=== PATIENT | male | born 1985 | race African-American/Black ===

== ENCOUNTER 2016-11-23 10:16 | Inpatient (IN) | payer SELFPAY ==
[~2016-11-23] VITALS: Ht 188 cm; Wt 82.3 kg
[~2016-11-23 10:16] MED LIST: LISI-334 PO
--- NOTE | 2016-11-23 11:41 | EKG ---
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
--- NOTE | 2016-11-23 11:46 | RAD ---
Portable chest, 11/23/2016: History: Chest pain Comparison is made to a study from 12/18/2015. The heart size is normal. The lungs are clear. There is no evidence of pleural fluid. IMPRESSION: No acute cardiopulmonary abnormality is detected.
[2016-11-23 11:51] LABS: BASO % 0 % (0-3); EOS % 1 % (0-3); HEMATOCRIT 46.8 % (39.0-53.0); HEMOGLOBIN 15.4 g/dL (13.0-17.5); LYMPH # 2.7 x10^3/uL (1.0-4.8); LYMPH % 26 % (24-48); MEAN CORPUSCULAR HEMOGLOBIN 27 pg (25-35); MEAN CORPUSCULAR HGB CONC 33 g/dL (31-37); MEAN CORPUSCULAR VOLUME 83 fL (79-100); MONO % 6 % (0-9); NEUT % 67 % (31-73); PLATELET COUNT 228 x10^3/uL (140-400); RED BLOOD COUNT 5.62 x10^6/uL (4.30-5.70); WHITE BLOOD COUNT 10.5 x10^3/uL (4.0-11.0)
[2016-11-23 11:56] LABS: ALBUMIN 4.3 g/dL (3.4-5.0); ALBUMIN/GLOBULIN RATIO 1.1 (1.0-1.7); CALCIUM 8.7 mg/dL (8.5-10.1); CREATININE 1.3 mg/dL (0.7-1.3); POTASSIUM 3.5 mmol/L (3.5-5.1); TOTAL BILIRUBIN 0.5 mg/dL (0.2-1.0); TOTAL PROTEIN 8.3 g/dL (6.4-8.2)
[2016-11-23 12:05] LABS: CKMB MASS 6.7 ng/mL (0.0-3.6)
[2016-11-23] MEDS ORDERED: IV NORMAL SALINE 1000ML BAG 1,000 ML IV ONE (12:30)
[2016-11-23 12:46] LABS: BILIRUBIN,URINE NEGATIVE (NEG); GLUCOSE,URINE NEGATIVE (NEG); NITRITE,URINE NEGATIVE (NEG); PH,URINE 5.5; PROTEIN,URINE NEGATIVE (NEG-TRACE); UROBILINOGEN,URINE 0.2 mg/dL (0.2 mg/dL)
--- NOTE | 2016-11-23 12:47 | PHYS DOC ---
Past Medical History Past Medical History: Other Additional Past Medical Histor: drug use Past Surgical History: No Surgical History Alcohol Use: Occasionally Drug Use: Cocaine Adult General Chief Complaint Chief Complaint: SUBSTANCE ABUSE HPI HPI Patient is a 31 year old with a history of drug abuse and htn presents the ED complaining of chest pain that started last night. Describes the pain as sharp. Pain is in the left chest. No radiation or migration. Rates the pain as 8 out of 10. Denies abdominal pain, shortness of breath, dizziness, weakness, syncope , blurry vision, fever or nausea/vomiting. Review of Systems Review of Systems Constitutional: Denies fever or chills [] Eyes: Denies change in visual acuity, redness, or eye pain [] HENT: Denies nasal congestion or sore throat [] Respiratory: Denies cough or shortness of breath [] Cardiovascular: No additional information not addressed in HPI [] GI: Denies abdominal pain, nausea, vomiting, bloody stools or diarrhea [] : Denies dysuria or hematuria [] Musculoskeletal: Denies back pain or joint pain [] Integument: Denies rash or skin lesions [] Neurologic: Denies headache, focal weakness or sensory changes [] Endocrine: Denies polyuria or polydipsia [] Current Medications Current Medications Current Medications Medications (Trade) Dose Ordered Sig/Megan Start Time Stop Time Status Last Admin Dose Admin Lorazepam (Ativan) 1 mg 1X STAT 11/23/16 11:15 11/23/16 11:18 DC 11/23/16 11:29 1 MG Sodium Chloride 1,000 ml @ 1,000 mls/hr 1X ONCE 11/23/16 12:30 11/23/16 13:29 DC 11/23/16 12:30 1,000 MLS/HR Allergies Allergies Allergies Coded Allergies Type Severity Reaction Last Updated Verified No Known Drug Allergies 12/18/15 No Physical Exam Physical Exam Constitutional: Well developed, well nourished, no acute distress, non-toxic appearance. [] HENT: Normocephalic, atraumatic, bilateral external ears normal, oropharynx moist, no oral exudates, nose normal. [] Eyes: PERRLA, EOMI, conjunctiva normal, no discharge. [] Neck: Normal range of motion, no tenderness, supple, no stridor. [] Cardiovascular:Heart rate regular rhythm, no murmur [] Lungs & Thorax: Bilateral breath sounds clear to auscultation [] Abdomen: Bowel sounds normal, soft, no tenderness, no masses, no pulsatile masses. [] Skin: Warm, dry, no erythema, no rash. [] Back: No tenderness, no CVA tenderness. [] Extremities: No tenderness, no cyanosis, no clubbing, ROM intact, no edema. [] Neurologic: Alert and oriented X 3, normal motor function, normal sensory function, no focal deficits noted. [] Psychologic: Affect normal, judgement normal, mood normal. [] Current Patient Data Vital Signs Vital Signs Date Time Temp Pulse Resp B/P (MAP) Pulse Ox O2 Delivery O2 Flow Rate FiO2 11/23/16 12:15 92 13 161/94 (116) 97 Room Air 11/23/16 10:23 98.1 98.1 Lab Values Laboratory Tests Test 11/23/16 10:25 11/23/16 12:35 White Blood Count 10.5 x10^3/uL (4.0-11.0) Red Blood Count 5.62 x10^6/uL (4.30-5.70) Hemoglobin 15.4 g/dL (13.0-17.5) Hematocrit 46.8 % (39.0-53.0) Mean Corpuscular Volume 83 fL (79-100) Mean Corpuscular Hemoglobin 27 pg (25-35) Mean Corpuscular Hemoglobin Concent 33 g/dL (31-37) Red Cell Distribution Width 14.0 % (11.5-14.5) Platelet Count 228 x10^3/uL (140-400) Neutrophils (%) (Auto) 67 % (31-73) Lymphocytes (%) (Auto) 26 % (24-48) Monocytes (%) (Auto) 6 % (0-9) Eosinophils (%) (Auto) 1 % (0-3) Basophils (%) (Auto) 0 % (0-3) Neutrophils # (Auto) 7.0 x10^3uL (1.8-7.7) Lymphocytes # (Auto) 2.7 x10^3/uL (1.0-4.8) Monocytes # (Auto) 0.7 x10^3/uL (0.0-1.1) Eosinophils # (Auto) 0.1 x10^3/uL (0.0-0.7) Basophils # (Auto) 0.0 x10^3/uL (0.0-0.2) Prothrombin Time 13.0 SEC (11.7-14.0) Prothrombin Time INR 1.0 (0.8-1.1) Sodium Level 139 mmol/L (136-145) Potassium Level 3.5 mmol/L (3.5-5.1) Chloride Level 101 mmol/L (98-107) Carbon Dioxide Level 24 mmol/L (21-32) Anion Gap 14 (6-14) Blood Urea Nitrogen 16 mg/dL (8-26) Creatinine 1.3 mg/dL (0.7-1.3) Estimated GFR (Cockcroft-Gault) 79.0 BUN/Creatinine Ratio 12 (6-20) Glucose Level 68 mg/dL (70-99) L Calcium Level 8.7 mg/dL (8.5-10.1) Total Bilirubin 0.5 mg/dL (0.2-1.0) Aspartate Amino Transferase (AST) 36 U/L (15-37) Alanine Aminotransferase (ALT) 34 U/L (16-63) Alkaline Phosphatase 63 U/L (46-116) Creatine Kinase 698 U/L (39-308) H Creatine Kinase MB (Mass) 6.7 ng/mL (0.0-3.6) H Creatine Kinase MB Relative Index 1.0 % (0-4) Troponin I Quantitative 0.046 ng/mL (0.000-0.055) Total Protein 8.3 g/dL (6.4-8.2) H Albumin 4.3 g/dL (3.4-5.0) Albumin/Globulin Ratio 1.1 (1.0-1.7) Lipase 91 U/L (73-393) Urine Collection Type Clean catch Urine Color Yellow Urine Clarity Clear Urine pH 5.5 Urine Specific [place] 1.025 Urine Protein Negative mg/dL (NEG-TRACE) Urine Glucose (UA) Negative mg/dL (NEG) Urine Ketones (Stick) 40 mg/dL (NEG) Urine Blood Negative (NEG) Urine Nitrite Negative (NEG) Urine Bilirubin Negative (NEG) Urine Urobilinogen Dipstick 0.2 mg/dL (0.2 mg/dL) Urine Leukocyte Esterase Negative (NEG) Urine RBC Occ /HPF (0-2) Urine WBC 1-4 /HPF (0-4) Urine Bacteria Few /HPF (0-FEW) Urine Mucus Mod /LPF Urine Sperm Present /HPF Urine Opiates Screen Neg (NEG) Urine Methadone Screen Neg (NEG) Urine Barbiturates Neg (NEG) Urine Phencyclidine Screen Neg (NEG) Urine Amphetamine/Methamphetamine Pos (NEG) Urine Benzodiazepines Screen Neg (NEG) Urine Cocaine Screen Pos (NEG) Urine Cannabinoids Screen Neg (NEG) Urine Ethyl Alcohol Pos (NEG) Laboratory Tests 11/23/16 10:25 Laboratory Tests 11/23/16 10:25 EKG EKG [] Radiology/Procedures Radiology/Procedures PROCEDURE: PORTABLE CHEST 1V Portable chest, 11/23/2016: History: Chest pain Comparison is made to a study from 12/18/2015. The heart size is normal. The lungs are clear. There is no evidence of pleural fluid. IMPRESSION: No acute cardiopulmonary abnormality is detected. Course & Med Decision Making Course & Med Decision Making Pertinent Labs and Imaging studies reviewed. (See chart for details) []Discussed case with hospitalist. Agrees to admission and further management patient. Patient stable for admission. Dragon Disclaimer Dragon Disclaimer This electronic medical record was generated, in whole or in part, using a voice recognition dictation system. Departure Departure Impression: Primary Impression: Cocaine abuse Additional Impression: Chest pain Disposition: ADMITTED INPATIENT Admitting Physician: Other (REUSCH) Condition: STABLE Referrals: NO PCP (PCP) Scripts Lisinopril (LISINOPRIL) 10 Mg Tablet 10 MG PO DAILY for 30 Days, #30 TAB Prov: ESTHER SALAZAR MD 11/25/16 Problem Qualifiers NATE HODGE Nov 23, 2016 12:47
[2016-11-23 12:51] LABS: BARBITURATES NEG (NEG); BENZODIAZEPINES NEG (NEG); CANNABINOIDS NEG (NEG); COCAINE POS (NEG); METHADONE NEG (NEG); OPIATES NEG (NEG); PHENCYCLIDINE NEG (NEG)
[2016-11-23 12:52] LABS: BACTERIA,URINE FEW /HPF (0-FEW)
[2016-11-23 12:53] LABS: RBC,URINE OCC /HPF (0-2); SPERM,URINE PRESENT /HPF
[2016-11-23 13:45] VITALS: BP 152/87
[2016-11-23 15:00] VITALS: BP 178/90
[2016-11-23] MEDS ORDERED: hydrALAZINE 20 MG/ML VIAL. IVP PRN (15:45)
[2016-11-23] MEDS ORDERED: LISINOPRIL 10 MG TABLET PO ONE (18:30)
--- NOTE | 2016-11-23 19:52 | HP ---
ADMIT DATE: CHIEF COMPLAINT: Chest pain. HISTORY OF PRESENT ILLNESS: The patient is a 31-year-old gentleman with known history of hypertension, but not taken any meds, who presented to the Emergency Room with chest pain. He relates this started during the night. It is in mid left chest, pressure type without any radiation or shortness of breath, diaphoresis or lightheadedness. He relates that he actually was on a booth over the weekend with a bunch of friends, was doing cocaine, which may have been laced with methamphetamine as well. He drank about 2/5 of Mayra over the weekend as well. Typically smokes about half a pack of cigarettes per day as well. He never had pain like this before. Pain became better in the Emergency Room. He feels generally still groggy. PAST MEDICAL HISTORY: None. FAMILY HISTORY: Positive for hypertension. SOCIAL HISTORY: He lives with his girlfriend and daughter. Smokes about half a pack, alcohol sporadically and then excessively as well as multiple other illicit drugs as well. 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 ALLERGIES: No known drug allergies. MEDICATIONS: At home, none. REVIEW OF SYSTEMS: Positive as per HPI. Rest of organ system review is negative. PHYSICAL EXAMINATION: VITAL SIGNS: Show a blood pressure of 178/90, heart rate of 97, respiratory rate at 18. He is afebrile. GENERAL: This is a well-nourished, well-developed 31-year-old -[place] gentleman, alert and oriented, in no acute distress. HEENT: Shows no scleral icterus. NECK: Supple, without any JVD or lymphadenopathy. Oral mucosa is pink and moist. LUNGS: Clear to auscultation bilaterally. HEART: Regular rate and rhythm. No murmurs appreciated. ABDOMEN: Has positive bowel sounds, soft, nontender. EXTREMITIES: Show no edema. SKIN: Warm, soft and dry without any rash. LABORATORY DATA: CBC with a WBC of 10.5, hemoglobin 15.4, platelets of 228. Chemistries with a BUN and creatinine of 16 and 1.3, normal electrolytes and normal LFTs. Tox screen positive for methamphetamine, cocaine and alcohol. IMAGING: Chest x-ray shows no cardiopulmonary abnormality. ASSESSMENT AND PLAN: The patient is a 31-year-old gentleman presenting with chest pain and mild troponin elevation, most likely secondary to multi-substance abuse, especially cocaine. He is admitted to the cardiac care unit. He will be ruled out with serial enzymes, telemetry and EKGs. We will obtain an echocardiogram in the morning. The patient does have significant hypertension, which he has been aware of since his teens. He apparently was never told that he should be on medications or decided not to take them. I will start him on lisinopril. Hydralazine p.r.n. to keep his blood pressure under 150. BUD GUTIERRES MD DR: UR/nts JOB#: [id number] / [id number] ANJALI
[2016-11-23 19:55] VITALS: BP 163/88
[2016-11-23 23:18] VITALS: BP 160/85
[2016-11-24] VITALS (7 sets, daily range): BP systolic 124–149; BP diastolic 67–88
[2016-11-24] MEDS ORDERED: LISINOPRIL 20 MG TABLET PO SCH (09:00)
[2016-11-24] MEDS ORDERED: ACETAMINOPHEN 325 MG TABLET. PO PRN (09:45)
[2016-11-24] MEDS ORDERED: hydrALAZINE 20 MG/ML VIAL. IVP PRN (09:45)
[2016-11-24] MEDS ORDERED: DOCUSATE SODIUM 100 MG CAPSULE. PO PRN (09:45)
[2016-11-24] MEDS ORDERED: MORPHINE SULFATE 2 MG/ML DISP.SYRIN. IV PRN (09:45)
[2016-11-24] MEDS ORDERED: traMADol 50 MG TABLET PO PRN (09:45)
[2016-11-24] MEDS ORDERED: ONDANSETRON PF 4 MG/2 ML VIAL. IV PRN (09:45)
[2016-11-24 11:10] LABS: CKMB MASS 3.2 ng/mL (0.0-3.6)
--- NOTE | 2016-11-24 18:55 | PDOC ---
PROGRESS NOTES Chief Complaint Chief Complaint chest pain, 2/2 coronary A spasm with cocaine HTN plan card consult echo pending lisinopril dvt ppx History of Present Illness History of Present Illness ROS: no fever, chills, sob chest pain still, mild , mild tenderness Vitals Vitals Vital Signs Date Time Temp Pulse Resp B/P (MAP) Pulse Ox O2 Delivery O2 Flow Rate FiO2 11/24/16 15:00 98.5 79 20 146/70 (95) 96 Room Air 98.5 Physical Exam General: Alert, Oriented X3, Cooperative Heart: Regular rate, Normal S1, Normal S2 Lungs: Clear Abdomen: Normal bowel sounds, Soft Extremities: No clubbing, No cyanosis Skin: No rashes Labs LABS Laboratory Tests Test 11/24/16 10:35 Creatine Kinase 518 U/L (39-308) Creatine Kinase MB (Mass) 3.2 ng/mL (0.0-3.6) Creatine Kinase MB Relative Index 0.6 % (0-4) Troponin I Quantitative 0.047 ng/mL (0.000-0.055) Assessment and Plan Assessmemt and Plan Problems Medical Problems: (1) Chest pain Status: Acute (2) Cocaine abuse Status: Acute Problems: Comment Review of Relevant I have reviewed the following items carlotta (where applicable) has been applied. Labs Laboratory Tests Test 11/23/16 10:25 11/23/16 12:35 11/23/16 18:25 11/24/16 10:35 White Blood Count 10.5 x10^3/uL (4.0-11.0) Red Blood Count 5.62 x10^6/uL (4.30-5.70) Hemoglobin 15.4 g/dL (13.0-17.5) Hematocrit 46.8 % (39.0-53.0) Mean Corpuscular Volume 83 fL (79-100) Mean Corpuscular Hemoglobin 27 pg (25-35) Mean Corpuscular Hemoglobin Concent 33 g/dL (31-37) Red Cell Distribution Width 14.0 % (11.5-14.5) Platelet Count 228 x10^3/uL (140-400) Neutrophils (%) (Auto) 67 % (31-73) Lymphocytes (%) (Auto) 26 % (24-48) Monocytes (%) (Auto) 6 % (0-9) Eosinophils (%) (Auto) 1 % (0-3) Basophils (%) (Auto) 0 % (0-3) Neutrophils # (Auto) 7.0 x10^3uL (1.8-7.7) Lymphocytes # (Auto) 2.7 x10^3/uL (1.0-4.8) Monocytes # (Auto) 0.7 x10^3/uL (0.0-1.1) Eosinophils # (Auto) 0.1 x10^3/uL (0.0-0.7) Basophils # (Auto) 0.0 x10^3/uL (0.0-0.2) Prothrombin Time 13.0 SEC (11.7-14.0) Prothromb Time International Ratio 1.0 (0.8-1.1) Sodium Level 139 mmol/L (136-145) Potassium Level 3.5 mmol/L (3.5-5.1) Chloride Level 101 mmol/L (98-107) Carbon Dioxide Level 24 mmol/L (21-32) Anion Gap 14 (6-14) Blood Urea Nitrogen 16 mg/dL (8-26) Creatinine 1.3 mg/dL (0.7-1.3) Estimated GFR (Cockcroft-Gault) 79.0 BUN/Creatinine Ratio 12 (6-20) Glucose Level 68 mg/dL (70-99) Calcium Level 8.7 mg/dL (8.5-10.1) Total Bilirubin 0.5 mg/dL (0.2-1.0) Aspartate Amino Transf (AST/SGOT) 36 U/L (15-37) Alanine Aminotransferase (ALT/SGPT) 34 U/L (16-63) Alkaline Phosphatase 63 U/L (46-116) Creatine Kinase 698 U/L (39-308) 518 U/L (39-308) Creatine Kinase MB (Mass) 6.7 ng/mL (0.0-3.6) 3.2 ng/mL (0.0-3.6) Creatine Kinase MB Relative Index 1.0 % (0-4) 0.6 % (0-4) Troponin I Quantitative 0.046 ng/mL (0.000-0.055) 0.049 ng/mL (0.000-0.055) 0.047 ng/mL (0.000-0.055) Total Protein 8.3 g/dL (6.4-8.2) Albumin 4.3 g/dL (3.4-5.0) Albumin/Globulin Ratio 1.1 (1.0-1.7) Lipase 91 U/L (73-393) Urine Collection Type Clean catch Urine Color Yellow Urine Clarity Clear Urine pH 5.5 Urine Specific [place] 1.025 Urine Protein Negative mg/dL (NEG-TRACE) Urine Glucose (UA) Negative mg/dL (NEG) Urine Ketones (Stick) 40 mg/dL (NEG) Urine Blood Negative (NEG) Urine Nitrite Negative (NEG) Urine Bilirubin Negative (NEG) Urine Urobilinogen Dipstick 0.2 mg/dL (0.2 mg/dL) Urine Leukocyte Esterase Negative (NEG) Urine RBC Occ /HPF (0-2) Urine WBC 1-4 /HPF (0-4) Urine Bacteria Few /HPF (0-FEW) Urine Mucus Mod /LPF Urine Sperm Present /HPF Urine Opiates Screen Neg (NEG) Urine Methadone Screen Neg (NEG) Urine Barbiturates Neg (NEG) Urine Phencyclidine Screen Neg (NEG) Urine Amphetamine/Methamphetamine Pos (NEG) Urine Benzodiazepines Screen Neg (NEG) Urine Cocaine Screen Pos (NEG) Urine Cannabinoids Screen Neg (NEG) Urine Ethyl Alcohol Pos (NEG) Laboratory Tests Test 11/24/16 10:35 Creatine Kinase 518 U/L (39-308) Creatine Kinase MB (Mass) 3.2 ng/mL (0.0-3.6) Creatine Kinase MB Relative Index 0.6 % (0-4) Troponin I Quantitative 0.047 ng/mL (0.000-0.055) Medications Current Medications Lorazepam (Ativan) 1 mg 1X STAT IV Last administered on 11/23/16 11:29; Start 11/23/16 at 11:15; Stop 11/23/16 at 11:18; Status DC Sodium Chloride 1,000 ml @ 1,000 mls/hr 1X ONCE IV Last administered on 12:30; Start 11/23/16 at 12:30; Stop 11/23/16 at 13:29; Status DC Hydralazine HCl (Apresoline) 10 mg PRN Q4HRS PRN IVP ELEVATED BP, SEE COMMENTS Last administered on 11/23/16 16:08; Start 11/23/16 at 15:45 Lisinopril (Prinivil) 10 mg 1X ONCE PO Last administered on 11/23/16 20:17; Start 11/23/16 at 18:30; Stop 11/23/16 at 18:31; Status DC Lisinopril (Prinivil) 20 mg DAILY PO Last administered on 11/24/16 08:47; Start 11/24/16 at 09:00 Acetaminophen (Tylenol) 650 mg PRN Q6HRS PRN PO FEVER; Start 11/24/16 at 09:45 Ondansetron HCl (Zofran) 4 mg PRN Q6HRS PRN IV NAUSEA/VOMITING; Start 11/24/16 at 09:45 Morphine Sulfate 2 mg PRN Q2HR PRN IV PAIN; Start 11/24/16 at 09:45 Tramadol HCl (Ultram) 50 mg PRN Q6HRS PRN PO PAIN; Start 11/24/16 at 09:45 Hydralazine HCl (Apresoline) 10 mg PRN Q4HRS PRN IVP ELEVATED BP, SEE COMMENTS ; Start 11/24/16 at 09:45 Docusate Sodium (Colace) 100 mg PRN DAILY PRN PO CONSTIPATION; Start 11/24/16 at 09:45 Active Scripts Active Vitals/I & O Vital Sign - Last 24 Hours 11/23/16 11/23/16 11/23/16 11/23/16 19:22 19:55 20:17 23:18 Temp 97.5 97.5 97.5 97.5 Pulse 90 90 95 Resp 18 18 B/P (MAP) 163/88 (113) 163/88 160/85 (110) Pulse Ox 96 96 O2 Delivery Room Air Room Air Room Air 11/24/16 11/24/16 11/24/16 11/24/16 03:56 07:00 08:00 08:40 Temp 98.0 97.9 98.0 97.9 Pulse 77 58 Resp 18 18 B/P (MAP) 135/80 (98) 125/67 (86) 142/88 (106) Pulse Ox 96 97 O2 Delivery Room Air Room Air Room Air 11/24/16 11/24/16 11/24/16 08:47 11:00 15:00 Temp 97.6 98.5 97.6 98.5 Pulse 58 52 79 Resp 20 20 B/P (MAP) 125/67 149/82 (104) 146/70 (95) Pulse Ox 100 96 O2 Delivery Room Air Intake and Output 11/24/16 11/24/16 11/25/16 15:00 23:00 07:00 Intake Total 1060 ml Balance 1060 ml ESTHER SALAZAR MD Nov 24, 2016 18:55
--- NOTE | 2016-11-24 20:30 | CONS ---
DATE OF CONSULTATION: 11/24/2016 REASON FOR CONSULTATION: Chest pain. HISTORY OF PRESENT ILLNESS: The patient is a 31-year-old male who unfortunately has done okay in the past and currently presents to the hospital in the setting of methamphetamine and cocaine abuse. He had some chest pain after doing drugs. His chest pain is getting better over the course of the last 12 hours or so. Currently, denies any chest pain. He is resting comfortably in bed. Previously, when he was admitted to the hospital approximately a year ago, he underwent an echocardiogram, which was unremarkable and we counseled him on substance abuse and unfortunately he had regressed. PAST MEDICAL HISTORY: As noted above. SOCIAL HISTORY: The patient is a drug user. He has 3 daughters. Denies any alcohol abuse. FAMILY HISTORY: Noncontributory. ALLERGIES: No known drug allergies. REVIEW OF SYSTEMS: Negative for 10 out of 14 systems reviewed, unless otherwise mentioned above in HPI. PHYSICAL EXAMINATION: HEAD AND NECK: Unremarkable. CARDIAC: Regular rate and rhythm without any murmurs, rubs or gallops. LUNGS: Clear to auscultation. ABDOMEN: Soft, nontender, nondistended. EXTREMITIES: No clubbing, cyanosis or edema. 2+ radial pulses. NEUROLOGIC: No focal deficits. MUSCULOSKELETAL: No trauma. LABORATORY DATA: Cardiac enzymes are negative x 3, normal BNP and CBC. Toxicology positive for methamphetamine, cocaine and alcohol. EKG is normal sinus rhythm with mild LVH. IMPRESSION: 1. Polysubstance abuse with chest pain secondary to cocaine use. 2. Mild hypertension. RECOMMENDATIONS: Monitor overnight. If no acute issues, may discharge tomorrow morning. He does not need a repeat echocardiogram at this time. He was counseled again on cocaine and substance abuse and side effects on his heart. Please call with questions. Thank you for this consultation. AMINA SHOOK MD DR: MILLY/keanu JOB#: [id number] / [id number]
[2016-11-25 03:56] VITALS: BP 122/69
[2016-11-25 05:14] LABS: BASO % 0 % (0-3); EOS % 7 % (0-3); HEMATOCRIT 43.9 % (39.0-53.0); HEMOGLOBIN 14.5 g/dL (13.0-17.5); LYMPH # 2.7 x10^3/uL (1.0-4.8); LYMPH % 38 % (24-48); MEAN CORPUSCULAR HEMOGLOBIN 27 pg (25-35); MEAN CORPUSCULAR HGB CONC 33 g/dL (31-37); MEAN CORPUSCULAR VOLUME 82 fL (79-100); MONO % 9 % (0-9); NEUT % 46 % (31-73); PLATELET COUNT 204 x10^3/uL (140-400); RED BLOOD COUNT 5.32 x10^6/uL (4.30-5.70); RED CELL DISTRIBUTION WIDTH 14.2 % (11.5-14.5); WHITE BLOOD COUNT 7.2 x10^3/uL (4.0-11.0)
[2016-11-25 06:00] LABS: CALCIUM 8.4 mg/dL (8.5-10.1); CREATININE 1.1 mg/dL (0.7-1.3); GFR 95.8; POTASSIUM 3.6 mmol/L (3.5-5.1)
[2016-11-25 07:00] VITALS: BP 115/73
[2016-11-25] MEDS ORDERED: LISI10TA2 PO (09:34)
--- NOTE | 2016-11-25 13:18 | PDOC3 ---
Discharge Summary [facility] Date of Admission: Nov 23, 2016 Discharge Date: Nov 25, 2016 Admitting Diagnosis chest pain, 2/2 coronary A spasm with cocaine HTN drug abuse with cocaine Problems: Final Diagnosis CONSULTS edgar [facility] Hospital Course Mr. Anand is a 31 old M, comes for chest pain, CE neg, EKG ok, + cocaine. pt was here last year for same reasone with + cocaine. card consulted, no echo needed. dc home with lisinopril 10mg daily dc time 35min. General: Alert, Oriented X3, Cooperative Heart: Regular rate, Normal S1, Normal S2 Lungs: Clear Abdomen: Normal bowel sounds, Soft Extremities: No clubbing, No cyanosis Skin: No rashes Patient History: Family history: Cardiovascular disease (situation) 32 MOTHER Family history: Hypertension (situation) 32 MOTHER Problems: Disposition home CONDITION AT DISCHARGE: Improved Diet regular Scheduled Lisinopril (Lisinopril), 10 MG PO DAILY Follow Up pcp in 2 weeks ESTHER SALAZAR MD Nov 25, 2016 13:18
[2016-11-26] MEDS ORDERED: LISINOPRIL 10 MG TABLET PO SCH (09:00)
== END 2016-11-25 12:28 | disposition home or self-care (01) | DRG 918 ==
LOC: ER 10:16 → 2 NORTH 12:47
PROVIDERS: ADMIT Internal Medicine Hematology & Oncology; ATTEND Internal Medicine Hematology & Oncology
DX: T40.5X1A Poisoning by cocaine, accidental (unintentional), initial encounter (principal); I10 Essential (primary) hypertension; F15.10 Other stimulant abuse, uncomplicated; F14.10 Cocaine abuse, uncomplicated; F17.210 Nicotine dependence, cigarettes, uncomplicated; Z82.49 Family history of ischemic heart disease and other diseases of the circulatory system; R25.2 Cramp and spasm
CPT/HCPCS: 36415; 71010; 80048; 80053; 80307; 81001; 82553; 83690; 84484; 85025; 85610; 93005; 96361; 96374; J0360; J2060; J7030; 99285-25; G0479